=== PATIENT | female | born 1965 | race Caucasian/White ===

== ENCOUNTER → 2017-02-19 | Outpatient (REF) | payer BC, OTHER ==
[~2017-02-19] MED LIST: /ESCI10TA PO; /FENO14TA OR; ALBU0.5N NEB; ASPI325T PO; CEFT500T PO; COMBIN INH; ESTR2TAB PO; NICO21DI26 TD; PRED20TA PO; VITA500046 PO; ZANTTAB9 PO; ambien; colace; fish oil; metoprolol; proventil; vicodin
[2017-02-19 19:23] LABS: COMPLEMENT C4 22.3 MG/DL (10-40)
== END ==
LOC: M LAB REF 17:08
PROVIDERS: ATTEND Internal Medicine Nephrology
DX: M32.10 Systemic lupus erythematosus, organ or system involvement unspecified (principal)

== ENCOUNTER → 2017-03-16 | Outpatient (CLI) | payer BC, OTHER ==
--- NOTE | 2017-03-16 14:59 | REP ---
MR LUMBAR SPINE WITHOUT CONTRAST: HISTORY: Back pain. COMPARISON: 01/08/2016 Decreased signal intensity on T2-weighted images is present in the L4-5 intervertebral disc. The disc is decreased in height. These findings are consistent with disc degeneration. There is no disc bulge or herniation at the L1-2 and L5-S1 levels. The nerves exit the neural foramina without compression. A diffuse disc bulge is present at the L2-3 level. There is minimal compression of the thecal sac. The L2 nerves exit the neural foramina without compression. A diffuse disc bulge is present at the L3-4 level. There is hypertrophy of the ligamenta flava and posterior articulating facets. These findings produce minimal central canal stenosis. The L3 nerves exit the neural foramina without compression. A diffuse disc bulge is present at the L4-5 level. There is hypertrophy of the ligamenta flava and posterior articulating facets. These findings produce mild central canal stenosis. The L4 nerves exit the neural foramina without compression. The conus medullaris is normal in appearance terminating at the level of the L1-2 intervertebral disc. Normal signal intensity is present in the lumbar vertebral bodies. IMPRESSION: 1. Diffuse disc bulge at the L2-3 level with minimal thecal sac compression. 2. Minimal central canal stenosis at the L3-4 level secondary to disc bulge, ligamentous and facet hypertrophy. 3. Mild central canal stenosis at the L4-5 level secondary to disc bulge, ligamentous and facet hypertrophy. There is no change compared to the previous study. Signed by Albert White MD 03/16/2017 03:20 P
== END ==
LOC: M PLARAD 12:50
PROVIDERS: ATTEND Anesthesiology Pain Medicine
DX: M51.26 Other intervertebral disc displacement, lumbar region (principal)

== ENCOUNTER → 2018-06-30 | Outpatient (REF) | payer BC, OTHER | LOC: M SFHCPLAZ 12:47 | DX: R30.0 Dysuria (principal) | CPT/HCPCS: 87086 ==

== ENCOUNTER → 2018-07-28 | Outpatient (CLI) | payer BC, OTHER | LOC: M SMT 14:24 | DX: R05 Cough (principal) | CPT/HCPCS: 71046 ==

== ENCOUNTER → 2018-08-03 | Outpatient (CLI) | payer BC, OTHER | LOC: M WHC 09:07 | DX: Z12.31 Encounter for screening mammogram for malignant neoplasm of breast (principal); Z78.0 Asymptomatic menopausal state; Z92.23 Personal history of estrogen therapy; Z80.3 Family history of malignant neoplasm of breast; E89.0 Postprocedural hypothyroidism; E04.2 Nontoxic multinodular goiter | CPT/HCPCS: 77067 ==

== ENCOUNTER → 2018-08-16 | Outpatient (REF) | payer BC, OTHER | LOC: M SFHCLERA 16:52 | DX: R70.0 Elevated erythrocyte sedimentation rate (principal) ==

== ENCOUNTER → 2018-08-17 | Outpatient (REF) | payer BC, OTHER | LOC: M SFHCLERA 16:32 | DX: R70.0 Elevated erythrocyte sedimentation rate (principal) ==

== ENCOUNTER → 2018-08-18 | Outpatient (REF) | payer BC, OTHER ==
[2018-08-18 20:05] LABS: TOTAL PROTEIN 6.8 GM/DL (6.4-8.2)
[2018-08-19 11:33] LABS: ALBUMIN 4.05 GM/DL (3.29-5.55); ALBUMIN % 59.6 % (55.8-66.1); ALPHA-1-GLOBULIN % 4.9 % (2.9-4.9); ALPHA-1-GLOBULINS 0.33 GM/DL (0.17-0.41); ALPHA-2-GLOBULINS 0.78 GM/DL (0.42-0.99); ALPHA-2-GLOBULINS % 11.4 % (7.1-11.8); BETA-1-GLOBULINS 0.46 GM/DL (0.28-0.60); BETA-1-GLOBULINS % 6.7 % (4.7-7.2); BETA-2-GLOBULINS 0.33 GM/DL (0.19-0.55); BETA-2-GLOBULINS % 4.9 % (3.2-6.5); GAMMA GLOBULIN % 12.5 % (11.1-18.8); GAMMA GLOBULINS 0.85 GM/DL (0.65-1.58)
== END ==
LOC: M SFHCLERA 15:18
DX: R70.0 Elevated erythrocyte sedimentation rate (principal)
CPT/HCPCS: 84165

== ENCOUNTER → 2018-08-24 | Outpatient (REF) | payer BC, OTHER ==
[2018-08-24 21:01] LABS: C REACTIVE PROTEIN QUANTITATIV 1.87 MG/DL (0.00-0.30)
[2018-08-24 21:03] LABS: CPK CREATINE PHOSPHOKINASE 120 U/L (26-192)
[2018-08-24 22:07] LABS: ERYTHROCYTE SEDIMENTATION RATE 7 mm/hr (0-30)
[2018-08-25 14:55] LABS: PROCALCITONIN <0.05 NG/ML (<0.10)
== END ==
LOC: M SFHCLERA 14:49
DX: R70.0 Elevated erythrocyte sedimentation rate (principal)
CPT/HCPCS: 82550

== ENCOUNTER → 2018-09-30 | Outpatient (REF) | payer BC, OTHER | LOC: M LAB REF 17:27 | DX: N39.0 Urinary tract infection, site not specified (principal) | CPT/HCPCS: 87186 ==

== ENCOUNTER → 2018-10-05 | Outpatient (CLI) | payer BC, OTHER | LOC: M RAD 07:49 | DX: R91.1 Solitary pulmonary nodule (principal); K76.9 Liver disease, unspecified; J43.9 Emphysema, unspecified | CPT/HCPCS: 76705 ==

== ENCOUNTER → 2019-03-07 | Outpatient (REF) | payer BC, OTHER ==
[~2019-03-07] MED LIST changes: -/ESCI10TA PO; -/FENO14TA OR; +LEXA1TAB PO; +TRIC145T19 OR
[2019-03-07 16:49] LABS: BLOOD UREA NITROGEN 7 MG/DL (7-18); CALCIUM LEVEL 8.6 MG/DL (8.5-10.1); CARBON DIOXIDE LEVEL 29 MEQ/L (21-32); CHLORIDE LEVEL 105 MEQ/L (98-107); CREATININE FOR GFR 0.73 MG/DL (0.55-1.30); GLOMERULAR FILTRATION RATE > 60.0 (>51); GLUCOSE, FASTING 79 MG/DL (70-100); POTASSIUM SERUM 3.9 MEQ/L (3.5-5.1); SODIUM LEVEL 138 MEQ/L (136-145)
== END ==
LOC: M SFHCPLAZ 14:18
PROVIDERS: ATTEND Family Medicine
DX: I10 Essential (primary) hypertension (principal)

== ENCOUNTER → 2019-08-25 | Outpatient (CLI) | payer BC ==
--- NOTE | 2019-08-25 15:19 | REP ---
PA and lateral chest: Comparison is 02/10/2019. The lung ramirez are clear. The cardiac size is normal. The sudheer, mediastinum, and skeletal structures are unremarkable. There are surgical clips in the soft tissues of the neck on the right, unchanged. There are surgical clips in the abdominal right upper quadrant, unchanged. Impression: Negative PA and lateral chest. There is no interval change. Electronically Signed by Pratik Grace MD 08/25/2019 03:11 P
== END ==
LOC: M LRY 14:47
PROVIDERS: ATTEND Nurse Practitioner Family
DX: R06.2 Wheezing (principal)

== ENCOUNTER → 2019-09-08 | Outpatient (CLI) | payer BC, OTHER ==
--- NOTE | 2019-09-14 09:51 | SLEEPHOME ---
DATE OF STUDY: 09/08/2019 ORDERED BY: Mio Lora Diagnostic home sleep testing was performed due to concern for the obstructive sleep apnea syndrome. For testing, a nocturnal T3 respiratory monitoring device was used. Continuous record was made of pulse, oxygen saturation, airflow, chest and abdominal strain and body position. 10 hours and 59 minutes of data were reviewed. There were 2 hours and 24 minutes marked as time in bed. During the interval marked time in bed, there were 20 respiratory events identified of 10 seconds in duration or greater for a respiratory event index of 8.3. The events were primarily obstructive. Baseline pulse rate 67 beats per minute, pulse rate ranged 57-75. Baseline saturation 91.3%. The lowest saturation was 87%. Testing was performed in both the supine and nonsupine positions. IMPRESSION: Abnormal home sleep testing with repetitive respiratory events and oxygen desaturations to 87% with a respiratory event index of 8.3 is consistent with the obstructive sleep apnea syndrome. RECOMMENDATION: The patient should be encouraged to undergo formal sleep evaluation.
== END ==
LOC: M SLEEP HO 09-07 10:02
PROVIDERS: ATTEND Physician Assistant
DX: R06.83 Snoring (principal)

== ENCOUNTER → 2019-10-13 | Outpatient (CLI) | payer BC, OTHER ==
--- NOTE | 2019-10-14 08:58 | REP ---
CT neck soft tissues: 10/13/2019. Indication: Neck swelling. Comparison: None. Technique: Unenhanced axial images of the neck soft tissues were obtained with coronal and sagittal reconstructions provided. Findings: Evaluation of the neck soft tissues without IV iodinated contrast is suboptimal. No abnormal solid soft tissue masses, abnormal fluid collections or cervical lymphadenopathy are detected. The airway is patent. Partial thyroidectomy is noted. Multilevel degenerative sequelae of the cervical spine are present with the greatest spinal canal narrowing at C4/C5 and C5/C6. No significant submandibular or parotid lesions are detected. The visualized ocular, intraorbital and intracranial anatomy is unremarkable. Impression: No abnormal solid soft tissue mass, abnormal fluid collection or cervical lymphadenopathy detected. Electronically Signed by Joe Diaz DO 10/14/2019 08:49 A
== END ==
LOC: M RAD 17:07
PROVIDERS: ATTEND Otolaryngology
DX: R22.1 Localized swelling, mass and lump, neck (principal)

== ENCOUNTER → 2019-10-17 | Outpatient (REF) | payer BC | LOC: M SFHCLERA 18:26 | PROVIDERS: ATTEND Nurse Practitioner Family | DX: J02.9 Acute pharyngitis, unspecified (principal) ==

== ENCOUNTER → 2019-10-17 | Outpatient (CLI) | payer BC, OTHER ==
--- NOTE | 2019-10-17 18:30 | REP ---
Clinical: Congestion . Comparison: 08/25/2019 . Technique: PA and lateral. Findings: The mediastinum and cardiac silhouette are normal. The lung ramirez are clear and without acute consolidation, effusion, or pneumothorax. The skeletal structures are intact and normal. Impression: 1. No focal consolidation or effusion. Electronically Signed by Mio George MD 10/17/2019 06:22 P
== END ==
LOC: M LRY 18:02
PROVIDERS: ATTEND Nurse Practitioner Family
DX: R09.89 Other specified symptoms and signs involving the circulatory and respiratory systems (principal)

== ENCOUNTER → 2019-10-18 | Outpatient (REF) | payer BC | LOC: M LAB REF 16:40 | PROVIDERS: ATTEND Nurse Practitioner Family | DX: N39.0 Urinary tract infection, site not specified (principal) ==

== ENCOUNTER → 2019-11-01 | Outpatient (CLI) | payer BC, OTHER ==
[2019-11-01 15:58] LABS: FREE T4 0.79 NG/DL (0.76-1.46); THYROID STIMULATING HORMONE 1.37 uIU/ML (0.358-3.740)
== END ==
LOC: M LAB 14:42
PROVIDERS: ATTEND Family Medicine
DX: K58.0 Irritable bowel syndrome with diarrhea (principal)

== ENCOUNTER → 2019-11-02 | Outpatient (CLI) | payer BC ==
[~2019-11-02] MED LIST changes: +READI-CAT 2 As Ordered ONE
--- NOTE | 2019-11-02 19:29 | REP ---
CT ABDOMEN AND PELVIS WITH ORAL CONTRAST ONLY: CT abdomen and pelvis performed with oral contrast. No IV contrast was administered. Sagittal and coronal reconstructions images are performed. No infiltrate is seen in either lung base. Evaluation of the abdominal organs is limited without the use of intravenous contrast. However, no gross abnormality is seen of the liver, spleen, adrenals, pancreas or kidneys. There is no hydroureteronephrosis bilaterally. The patient has had a prior cholecystectomy. There is no gross biliary dilatation. Abdominal aorta demonstrates mild atherosclerotic calcification with no aneurysm. There is no gross adenopathy. There is no free air or free fluid. No definite bowel wall thickening is seen. Patient has had a hysterectomy. No pelvic mass is seen. Urinary bladder is mildly distended and grossly unremarkable. IMPRESSION: Grossly unremarkable CT abdomen and pelvis as discussed above. Unreviewed
== END ==
LOC: M RAD 15:22
PROVIDERS: ATTEND Internal Medicine Gastroenterology
DX: R63.4 Abnormal weight loss (principal); K58.0 Irritable bowel syndrome with diarrhea

== ENCOUNTER → 2019-12-22 | Outpatient (REF) | payer BC, OTHER ==
[~2019-12-22] MED LIST changes: +ATAC4TAB2 PO; +COMBAER6 INH; +DULO1CAP4 PO; +ESTR1TAB PO; +GABA-845 PO; +HYDR-4517 PO; +METH2.5T48 PO; +PEPC40TA12 PO; +PRIL20TA2 PO; +PROAAER10 INH; -READI-CAT 2 As Ordered ONE; +SYMB16INH INH
[2019-12-22 11:26] LABS: BLOOD UREA NITROGEN 8 MG/DL (7-18); CALCIUM LEVEL 8.7 MG/DL (8.5-10.1); CARBON DIOXIDE LEVEL 31 MEQ/L (21-32); CHLORIDE LEVEL 105 MEQ/L (98-107); CREATININE FOR GFR 0.79 MG/DL (0.55-1.30); GLOMERULAR FILTRATION RATE > 60.0 (>51); GLUCOSE, FASTING 94 MG/DL (70-100); MAGNESIUM LEVEL 2.4 MG/DL (1.8-2.4); POTASSIUM SERUM 4.2 MEQ/L (3.5-5.1); SODIUM LEVEL 140 MEQ/L (136-145)
== END ==
LOC: M SFHCPLAZ 09:15
PROVIDERS: ATTEND Family Medicine
DX: N18.3 Chronic kidney disease, stage 3 (moderate) (principal)

== ENCOUNTER 2019-12-27 09:49 | Day surgery (SDC) | payer BC, OTHER ==
[~2019-12-27] VITALS: Ht 162.6 cm; Wt 68.9 kg
[~2019-12-27 09:49] MED LIST changes: +NS 1,000 ML IV ONE
[2019-12-27] MEDS ORDERED: fentaNYL 100 MCG/2 ML INJECTION (J3010) As Ordered ONE (12:46)
[2019-12-27] MEDS ORDERED: propofoL 200 MG/20 ML VIAL As Ordered ONE (12:46)
[2019-12-27] MEDS ORDERED: LIDOCAINE 2% INJ 100 MG/5 ML SDV (FOR ANES.) As Ordered ONE (12:46)
--- NOTE | 2019-12-27 12:57 | ROOR ---
Patient Name: Sabrina Pal Procedure Date: 12/27/2019 12:42 PM Date of : 1965 Age: 54 Room: [facility] Gender: Female Note Status: Finalized Procedure: Upper GI endoscopy Indications: Abdominal pain, Heartburn, Weight loss Providers: Celestino MILLER MD Referring MD: Karyn Euceda MD Requesting Provider: Medicines: Monitored Anesthesia Care Complications: No immediate complications. Procedure: Pre-Anesthesia Assessment: - The heart rate, respiratory rate, oxygen saturations, blood pressure, adequacy of pulmonary ventilation, and response to care were monitored throughout the procedure. The Endoscope was introduced through the mouth, and advanced to the third part of duodenum. The upper GI endoscopy was accomplished without difficulty. The patient tolerated the procedure well. Findings: The esophagus was normal. The stomach was normal. The examined duodenum was normal. Impression: - Normal esophagus. - Normal stomach. - Normal examined duodenum. - No specimens collected. Recommendation: - Observe patient's clinical course. - Continue present medications. - Use Pepcid (famotidine) 20 mg PO BID. - Follow an antireflux regimen. Celestino Miller MD Celestino MILLER MD 12/27/2019 12:56:52 PM Electronically signed by Celestino MILLER MD Number of Addenda: 0 Note Initiated On: 12/27/2019 12:42 PM Estimated Blood Loss: Estimated blood loss: none.
--- NOTE | 2019-12-27 13:20 | ROOR ---
Patient Name: Sabrina Pal Procedure Date: 12/27/2019 12:42 PM Date of : 1965 Age: 54 Room: [facility] Gender: Female Note Status: Finalized Procedure: Colonoscopy Indications: Generalized abdominal pain, Change in bowel habits, Weight loss --(symptoms reduced/resolved after stopping PPI meds) Providers: Celestino MILLER MD Referring MD: Karyn Euceda MD Requesting Provider: Medicines: Monitored Anesthesia Care Complications: No immediate complications. Procedure: Pre-Anesthesia Assessment: - The heart rate, respiratory rate, oxygen saturations, blood pressure, adequacy of pulmonary ventilation, and response to care were monitored throughout the procedure. The Colonoscope was introduced through the anus and advanced to 9 cm into the ileum. The colonoscopy was performed without difficulty. The patient tolerated the procedure well. The quality of the bowel preparation was good. Findings: The perianal and digital rectal examinations were normal. (Sphincter tone may be decreased) Two sessile polyps were found in the splenic flexure. The polyps were 3 to 5 mm in size. These polyps were removed with a cold snare. Resection and retrieval were complete. Internal hemorrhoids were found during retroflexion. The hemorrhoids were small. The exam was otherwise normal throughout the examined colon. The terminal ileum appeared normal. Biopsies for histology were taken with a cold forceps for evaluation of microscopic colitis. Impression: - Diminished anal sphincter tone on digital rectal exam. - Two 3 to 5 mm polyps at the splenic flexure, removed with a cold snare. Resected and retrieved. - Internal hemorrhoids. - The colon is otherwise normal. - The examined portion of the ileum was normal. - Biopsies were taken with a cold forceps for evaluation of microscopic colitis. Recommendation: - Repeat colonoscopy in 5 years for surveillance. - Use fiber, for example Citrucel, Fibercon, Konsyl or Metamucil. - Telephone endoscopist for pathology results in 2 weeks. Celestino Miller MD Celestino MILLER MD 12/27/2019 1:20:30 PM Electronically signed by Celestino MILLER MD Number of Addenda: 0 Note Initiated On: 12/27/2019 12:42 PM Estimated Blood Loss: Estimated blood loss: none.
[2019-12-27 13:40] VITALS: BP 136/70
== END 2019-12-27 13:56 | disposition home or self-care (01) ==
LOC: M OPP 09:49
PROVIDERS: ATTEND Internal Medicine Gastroenterology
DX: D12.3 Benign neoplasm of transverse colon (principal); K64.8 Other hemorrhoids; R10.84 Generalized abdominal pain; R19.4 Change in bowel habit; R63.4 Abnormal weight loss; R12 Heartburn; Z79.891 Long term (current) use of opiate analgesic; Z79.899 Other long term (current) drug therapy; Z88.2 Allergy status to sulfonamides; Z88.5 Allergy status to narcotic agent; Z88.8 Allergy status to other drugs, medicaments and biological substances; Z91.040 Latex allergy status; Z91.041 Radiographic dye allergy status
CPT/HCPCS: 43235; 45380; 45385; 88305; J3010

== ENCOUNTER → 2020-01-27 | Outpatient (REF) | payer BC, OTHER ==
[~2020-01-27] MED LIST changes: -NS 1,000 ML IV ONE
== END ==
LOC: M SFHCWAGY 11:47
PROVIDERS: ATTEND Family Medicine
DX: D23.72 Other benign neoplasm of skin of left lower limb, including hip (principal); D23.71 Other benign neoplasm of skin of right lower limb, including hip; D23.5 Other benign neoplasm of skin of trunk

== ENCOUNTER 2020-07-17 14:57 | Emergency (ER) | payer BC, OTHER ==
[~2020-07-17] VITALS: Ht 165.1 cm; Wt 74.1 kg
[2020-07-17] MEDS ORDERED: OMEP-221 PO (15:33)
[2020-07-17] MEDS ORDERED: CLON0.5T2 PO (15:33)
[2020-07-17 16:12] LABS: BASO % 0.3 % (0.0-1.0); EOS # 0.1 10^3/uL (0.0-0.5); EOS % 1.2 % (0.0-3.0); HEMATOCRIT 40.1 % (36.0-47.0); HEMOGLOBIN 13.8 g/dl (12.0-15.5); LYMPH # 2.4 10^3/uL (1.5-5.0); LYMPH % 35.5 % (24.0-44.0); MEAN CORPUSCULAR HEMOGLOBIN 31.9 pg (27.0-33.0); MEAN CORPUSCULAR HGB CONC 34.4 g/dl (32.0-36.5); MEAN CORPUSCULAR VOLUME 92.6 fl (80.0-96.0); MONO # 0.5 10^3/uL (0.0-0.8); MONO % 7.9 % (0.0-5.0); NEUTROPHILS # 3.7 10^3/uL (1.5-8.5); NEUTROPHILS % 54.8 % (36.0-66.0); PLATELET COUNT, AUTOMATED 196 10^3/uL (150-450); RED BLOOD COUNT 4.33 10^6/uL (4.00-5.40); WHITE BLOOD COUNT 6.7 10^3/uL (4.0-10.0)
[2020-07-17 16:32] LABS: ERYTHROCYTE SEDIMENTATION RATE 16 mm/hr (0-30)
[2020-07-17 16:51] LABS: BLOOD UREA NITROGEN 7 MG/DL (7-18); C REACTIVE PROTEIN QUANTITATIV 1.99 MG/DL (0.00-0.30); CALCIUM LEVEL 8.9 MG/DL (8.5-10.1); CARBON DIOXIDE LEVEL 30 MEQ/L (21-32); CHLORIDE LEVEL 105 MEQ/L (98-107); GLOMERULAR FILTRATION RATE > 60.0 (>51); GLUCOSE, FASTING 96 MG/DL (70-100); NT-PRO BNP 198 PG/ML (<125); POTASSIUM SERUM 3.5 MEQ/L (3.5-5.1); SODIUM LEVEL 139 MEQ/L (136-145)
[2020-07-17] MEDS ORDERED: FUROSEMIDE 20 MG TAB PO ONE (17:30)
[2020-07-17] MEDS ORDERED: POTASSIUM CHLORIDE 10% LIQ 20 MEQ/15 ML UDC PO ONE (17:30)
[2020-07-17 17:53] LABS: CK-MB VALUE MASS < 1.0 NG/ML (<3.6); CPK CREATINE PHOSPHOKINASE 92 U/L (26-192); MB/CK RELATIVE INDEX 1.09 (< OR =4); TROPONIN I < 0.02 NG/ML (< 0.10)
[2020-07-17] MEDS ORDERED: ACETAMINOPHEN 500 MG TAB PO ONE (18:00)
[2020-07-17] MEDS ORDERED: POTA20EL PO (18:45)
[2020-07-17 18:53] VITALS: BP 190/100
--- NOTE | 2020-08-05 17:29 | ECGEPIP ---
[facility] - ED Test Date: 2020-07-17 Pat Name: VERONIKA CROWLEY Department: Room: - Gender: Female Teen Counselor: : 1965 Requested By: NUNU Maki PA-C Order Number: [id number] Reading MD: Diamond Chow-Zachariah Measurements Intervals [place] Rate: 60 P: 60 CO: 131 QRS: -14 QRSD: 85 T: 28 QT: 417 QTc: 419 Interpretive Statements SINUS RHYTHM NONSPECIFIC ST T CHANGE NO PRIOR-DOWNTIME SEE SCANNED DOWNTIME REPORT
--- NOTE | 2020-08-21 09:54 | REP ---
TWO-VIEW CHEST COMPARISON: Multiple, the latest 10/17/2019. FINDINGS: The cardiomediastinal silhouette is within normal limits. The superior mediastinal structures are midline. The lung ramirez are clear. The diaphragmatic surfaces of the lungs are regular and the costophrenic angles are clear. The osseous structures are stable and intact. IMPRESSION: No acute cardiopulmonary disease or significant change from the prior exam. MTDD
== END 2020-07-17 18:55 | disposition home or self-care (01) ==
LOC: M ED 14:57
DX: R22.43 Localized swelling, mass and lump, lower limb, bilateral (principal); R06.02 Shortness of breath; R05 Cough; I12.9 Hypertensive chronic kidney disease with stage 1 through stage 4 chronic kidney disease, or unspecified chronic kidney disease; J44.9 Chronic obstructive pulmonary disease, unspecified; M32.9 Systemic lupus erythematosus, unspecified; F17.210 Nicotine dependence, cigarettes, uncomplicated; Z88.2 Allergy status to sulfonamides; Z88.6 Allergy status to analgesic agent; Z91.040 Latex allergy status; Z79.899 Other long term (current) drug therapy; Z79.51 Long term (current) use of inhaled steroids

== ENCOUNTER → 2020-07-19 | Outpatient (CLI) | payer BC, OTHER ==
[~2020-07-19] MED LIST changes: +CLON0.5T2 PO; +OMEP-221 PO; +POTA20EL PO
[2020-07-19 13:50] LABS: BLOOD UREA NITROGEN 7 MG/DL (7-18); CALCIUM LEVEL 8.8 MG/DL (8.5-10.1); CARBON DIOXIDE LEVEL 28 MEQ/L (21-32); CHLORIDE LEVEL 106 MEQ/L (98-107); CREATININE FOR GFR 0.74 MG/DL (0.55-1.30); GLOMERULAR FILTRATION RATE > 60.0 (>51); GLUCOSE, FASTING 80 MG/DL (70-100); POTASSIUM SERUM 3.8 MEQ/L (3.5-5.1); SODIUM LEVEL 138 MEQ/L (136-145)
== END ==
LOC: M PLALAB 09:09
PROVIDERS: ATTEND Physician Assistant
DX: E87.6 Hypokalemia (principal)

== ENCOUNTER → 2020-10-09 | Outpatient (CLI) | payer BC, OTHER ==
--- NOTE | 2020-10-10 03:47 | REP ---
INDICATION: R10.2 PELVIC AND PERINEAL PAIN COMPARISON: None. TECHNIQUE: Transabdominal pelvic ultrasound followed by transvaginal examination for better evaluation of the endometrium and adnexa with color Doppler evaluation of the ovaries. FINDINGS: Bladder is unremarkable and measures approximately 6.9 x 5.8 x 6.8 cm. Patient is noted to be status post total hysterectomy and oophorectomy. No pelvic fluid or adnexal mass lesion. IMPRESSION: Status post total hysterectomy. No pelvic fluid or mass lesion. <Electronically signed by Mio George > 10/10/20 [id number]
== END ==
LOC: M WHC 15:06
PROVIDERS: ATTEND Obstetrics & Gynecology
DX: R10.2 Pelvic and perineal pain (principal)

== ENCOUNTER → 2020-11-01 | Outpatient (CLI) | payer BC, OTHER ==
--- NOTE | 2020-11-01 14:36 | REPPI ---
INDICATION: M54.5 LOW BACK PAIN. COMPARISON: 07/31/2014. TECHNIQUE: Seven views including flexion and extension. FINDINGS: Vertebral body heights, interspacing and alignment are normal except for mild disc space narrowing at L5-S1. This is unchanged. There is no spondylolysis or spondylolisthesis. There is no listhesis on the flexion or extension views. The pedicles and facets are unremarkable The 12th ribs are hypoplastic as previously. There are surgical clips in the abdominal right upper quadrant. Except for mild facet osteoarthritis at the lower lumbar levels. IMPRESSION: Mild degenerative disc disease at L5-S1, unchanged. There is no spondylolisthesis including flexion and extension views. There is no spondylolysis. Hypoplastic 12th ribs. <Electronically signed by Pratik Grace > 11/01/20 [id number]
== END ==
LOC: M PLAIMG 10:58
PROVIDERS: ATTEND Family Medicine
DX: M54.5 Low back pain (principal)

== ENCOUNTER → 2020-11-01 | Outpatient (REF) | payer BC, OTHER ==
[2020-11-01 13:43] LABS: HEMATOCRIT 41.9 % (36.0-47.0); HEMOGLOBIN 13.5 g/dl (12.0-15.5); MEAN CORPUSCULAR HEMOGLOBIN 29.4 pg (27.0-33.0); MEAN CORPUSCULAR HGB CONC 32.2 g/dl (32.0-36.5); MEAN CORPUSCULAR VOLUME 91.3 fl (80.0-96.0); PLATELET COUNT, AUTOMATED 241 10^3/uL (150-450); RED BLOOD COUNT 4.59 10^6/uL (4.00-5.40); WHITE BLOOD COUNT 6.9 10^3/uL (4.0-10.0)
[2020-11-01 14:08] LABS: BLOOD UREA NITROGEN 8 MG/DL (7-18); CALCIUM LEVEL 8.5 MG/DL (8.5-10.1); CARBON DIOXIDE LEVEL 30 MEQ/L (21-32); CHLORIDE LEVEL 107 MEQ/L (98-107); CREATININE FOR GFR 0.74 MG/DL (0.55-1.30); GLOMERULAR FILTRATION RATE > 60.0 (>51); GLUCOSE, FASTING 86 MG/DL (70-100); POTASSIUM SERUM 3.7 MEQ/L (3.5-5.1); SODIUM LEVEL 140 MEQ/L (136-145)
== END ==
LOC: M SFHCPLAZ 10:58
PROVIDERS: ATTEND Family Medicine
DX: Z01.818 Encounter for other preprocedural examination (principal)

== ENCOUNTER → 2020-12-26 | Outpatient (CLI) | payer BC, OTHER ==
--- NOTE | 2020-12-26 15:23 | REP ---
INDICATION: LUNG SCREENING. COMPARISON: None. TECHNIQUE: Low-dose screening technique. 3 mm axial slices are provided at lung only windows. FINDINGS: Digital preliminary hardness tester radiograph is unremarkable. There is a 3 mm noncalcified pulmonary nodule in the left lung apex on page 14 of 108 in series 301 of today's study. There is a tiny area of subpleural fibrosis in the right upper lobe posteriorly. There is a benign Diane fissural 3 mm nodular density in the right middle lobe on page 54. No other pulmonary nodule is seen. No evidence of mass or infiltrate. No pleural effusion is seen. There are clips in the gallbladder fossa. There is mild vascular calcification. IMPRESSION: Lung RADS category 1 findings. Repeat screening study suggested in 1 year. <Electronically signed by Isael Staton > 12/26/20 [id number]
== END ==
LOC: M RAD 13:51
PROVIDERS: ATTEND Physician Assistant
DX: Z12.2 Encounter for screening for malignant neoplasm of respiratory organs (principal); F17.218 Nicotine dependence, cigarettes, with other nicotine-induced disorders

== ENCOUNTER → 2021-06-08 | Outpatient (CLI) | payer OTHER, MEDICARE, BC ==
[~2021-06-08] MED LIST changes: +GABA-283 PO; -GABA-845 PO
--- NOTE | 2021-06-08 13:10 | REPVR ---
PROCEDURE INFORMATION: Exam: MR Lumbar Spine Without Contrast. Exam date and time: 06/08/2021 10:53 AM Age: 55 years old Clinical indication: Other: Numbness on the bottom of left foot and toes; Additional info: Paresthesia of left foot TECHNIQUE: Imaging protocol: Multiplanar magnetic resonance images of the lumbar spine without contrast. COMPARISON: MRI-Spine, L.S. without con 03/16/2017 1:07 PM FINDINGS: Normal lumbar lordosis. Minimal anterolisthesis at L3-L4. No compression fractures. Normal marrow signal. Disc heights are maintained with mild degenerative disc signal throughout the lumbar spine. The distal spinal cord appears normal. Spinal canal narrowing is accentuated by dorsal epidural lipomatosis, most pronounced at the L3-L4 level. At L1-L2, there is no significant spinal canal or neural foraminal narrowing. At L2-L3, there is no significant spinal canal or neural foraminal narrowing. Mild bilateral facet arthrosis. At L3-L4, there is mild circumferential disc bulge and ligamentum flavum hypertrophy which in conjunction with epidural lipomatosis results in moderate spinal canal narrowing. Mild right neural foraminal narrowing. Moderate right and mild left facet arthrosis. At L4-L5, a mild circumferential disc bulge is present and there is ligamentum flavum hypertrophy. There is mild spinal canal narrowing. Minimal inferior neural foraminal narrowing. Moderate left and mild right facet arthrosis. At L5-S1, there is no significant spinal canal or neural foraminal narrowing. IMPRESSION: Multilevel lumbar spine degenerative change accentuated by epidural lipomatosis, with up to moderate spinal canal narrowing at L3-L4 which appears progressive from the comparison MRI from 2016. Electronically signed by: Nuno Marie On 06/08/2021 13:09:47 PM
== END ==
LOC: M RAD 10:19
PROVIDERS: ATTEND Family Medicine
DX: R20.2 Paresthesia of skin (principal)

== ENCOUNTER → 2021-07-02 | Outpatient (CLI) | payer OTHER, MEDICARE, BC ==
--- NOTE | 2021-07-02 14:07 | REP ---
INDICATION: CALCULUS OF KIDNEY. COMPARISON: Multiple the latest 11/02/2019 TECHNIQUE: Standard helical technique without intravenous contrast stone protocol utilized secondary to renal calculi. FINDINGS: Minimal bibasilar subsegmental atelectatic changes are present. Lung bases are otherwise clear and unchanged. Limited evaluation of the solid intra-abdominal organs show no gross abnormalities or significant changes from the prior exam. Limited evaluation of the pancreas and adrenal glands show no gross abnormalities or significant changes from the prior exam. Limited evaluation of the kidneys and renal collecting system show no gross abnormalities bilaterally. There is no nephroureterolithiasis, hydronephrosis, or hydroureter. There are no urinary bladder calcifications. Limited evaluation of the bowel loops and the mesenteries show no gross abnormalities or significant changes from the prior exam. Limited evaluation of the abdominal aorta and para-aortic regions show no gross abnormalities or significant changes from the prior exam. There is no free fluid or free air. There is no change in the osseous structures. IMPRESSION: There has been no significant change compared to the prior exam. There is no evidence of acute disease. Consider contrast enhanced examination if clinically relevant. <Electronically signed by Conrad Mchugh > 07/02/21 [id number]
== END ==
LOC: M RAD 12:30
PROVIDERS: ATTEND Nurse Practitioner Family
DX: N39.0 Urinary tract infection, site not specified (principal); N20.0 Calculus of kidney

== ENCOUNTER → 2021-10-28 | Outpatient (CLI) | payer OTHER, MEDICARE, BC ==
--- NOTE | 2021-10-28 11:06 | REPMRS ---
Patient History The patient states she had a clinical breast exam in 04/2021. Patient is postmenopausal. Family history of breast cancer at age 61 in maternal grandmother, breast cancer at age 50 or over in paternal aunt, pancreatic cancer at age 50 or over in paternal grandfather. Taking estrogen for 13 years beginning at age 42. Patient states no breast complaints today. Patient has signed MRS History Sheet. Digital Woman Screen Mammo: October 28, 2021 - Exam #: [id number] Bilateral CC and MLO view(s) were taken. Technologist: Mara Guillen, Hard Tile Setter Prior study comparison: August 03, 2018, bilateral digital woman screen mammo performed at [facility] and [facility]. April 03, 2016, digital bilateral screening mammo, performed at [facility]. FINDINGS: There are scattered fibroglandular densities. Screening. Digital screening (2D) mammography was performed bilaterally in the CC and MLO projections. Additionally, breast tomosynthesis (3D mammography) was performed bilaterally in the CC and MLO projections. Todays exam was compared to the prior exam/exams. By history, the patient has no complaints of a palpable breast abnormality or other significant breast complaints. The Volpara volumetric breast density category is B, there are scattered areas of fibroglandular densities. The breasts are unchanged in size and shape. There are no stefania-soft tissue densities or spiculated masses. There is no internal architectural distortion. Once again, stable benign appearing calcifications are seen. There are no suspicious stefania-calcific clusters. Skin thickening or nipple retraction is not present. IMPRESSION: BI-RADS Category 2- Benign Findings. There is no evidence of malignant alteration of the breasts. Followup examination recommended in one year. This mammogram was read with the assistance of [facility],an FDA approved computer aided detection system for mammography. The lifetime Tyrer-Cuzick score is 11.1% Negative x-ray reports should not delay surgical consultation if a dominant or clinically suspicious mass is present. Not all breast cancers can be identified by mammography. Therefore, we recommend that you continue to perform regular breast self-examination and physical examination and then promptly contact your physician of any concerns or changes. Adenosis and dense breasts may obscure an underlying neoplasm. No significant changes when compared with prior studies. Assessment: BI-RADS/ACR category 2 mammogram. Benign Findings. Recommendation Routine screening mammogram of both breasts in 1 year. Electronically Signed By: Preston Granados MD 10/28/21 [id number]
== END ==
LOC: M WHC 08:43
PROVIDERS: ATTEND Family Medicine
DX: Z12.31 Encounter for screening mammogram for malignant neoplasm of breast (principal)

== ENCOUNTER → 2022-02-10 | Outpatient (CLI) | payer MEDICARE, BC ==
[~2022-02-10] MED LIST changes: -OMEP-221 PO; +OMEP40CA5 PO
== END ==
LOC: M RAD 13:28
PROVIDERS: ATTEND Physician Assistant
DX: Z12.2 Encounter for screening for malignant neoplasm of respiratory organs (principal); F17.210 Nicotine dependence, cigarettes, uncomplicated

== ENCOUNTER → 2022-02-26 | Outpatient (REF) | payer MEDICARE, BC, OTHER | LOC: M SFHCPLAZ 18:49 | PROVIDERS: ATTEND Family Medicine | DX: L57.0 Actinic keratosis (principal); L57.8 Other skin changes due to chronic exposure to nonionizing radiation; B07.9 Viral wart, unspecified ==

== ENCOUNTER → 2022-04-02 | Outpatient (CLI) | payer MEDICARE, BC, OTHER ==
[2022-04-02 17:27] LABS: BASO % 0.4 % (0.0-1.0); EOS # 0.1 10^3/uL (0.0-0.5); HEMATOCRIT 40.5 % (36.0-47.0); HEMOGLOBIN 13.6 g/dl (12.0-15.5); LYMPH # 2.6 10^3/uL (1.5-5.0); LYMPH % 36.5 % (24.0-44.0); MEAN CORPUSCULAR HEMOGLOBIN 30.2 pg (27.0-33.0); MEAN CORPUSCULAR HGB CONC 33.6 g/dl (32.0-36.5); MEAN CORPUSCULAR VOLUME 89.8 fl (80.0-96.0); MONO # 0.5 10^3/uL (0.0-0.8); MONO % 7.6 % (2.0-8.0); NEUTROPHILS # 3.9 10^3/uL (1.5-8.5); NEUTROPHILS % 54.1 % (36.0-66.0); PLATELET COUNT, AUTOMATED 381 10^3/uL (150-450); RED BLOOD COUNT 4.51 10^6/uL (4.00-5.40); WHITE BLOOD COUNT 7.1 10^3/uL (4.0-10.0)
[2022-04-02 17:36] LABS: CHOLESTEROL RISK RATIO 4.404 (<5); FREE T4 0.8 NG/DL (0.76-1.46); THYROID STIMULATING HORMONE 2.09 uIU/ML (0.358-3.740)
== END ==
LOC: M PLALAB 14:51
PROVIDERS: ATTEND Physician Assistant
DX: R53.83 Other fatigue (principal); Z79.899 Other long term (current) drug therapy

== ENCOUNTER → 2022-07-15 | Outpatient (CLI) | payer MEDICARE, BC | LOC: M RAD 09:12 | PROVIDERS: ATTEND Internal Medicine Rheumatology | DX: M51.26 Other intervertebral disc displacement, lumbar region (principal); M48.061 Spinal stenosis, lumbar region without neurogenic claudication; M51.27 Other intervertebral disc displacement, lumbosacral region ==

== ENCOUNTER → 2022-08-15 | Outpatient (CLI) | payer MEDICARE, BC | LOC: M PLAIMG 12:43 | PROVIDERS: ATTEND Physician Assistant | DX: R91.8 Other nonspecific abnormal finding of lung field (principal) ==

== ENCOUNTER → 2023-01-02 | Outpatient (CLI) | payer MEDICARE, BC ==
[2023-01-02 12:26] LABS: BASO # 0.1 10^3/uL (0.0-0.2); BASO % 0.8 % (0.0-1.0); EOS # 0.2 10^3/uL (0.0-0.5); EOS % 2.3 % (0.0-3.0); HEMATOCRIT 41.9 % (36.0-47.0); HEMOGLOBIN 13.8 g/dl (12.0-15.5); LYMPH # 2.3 10^3/uL (1.5-5.0); LYMPH % 36.3 % (24.0-44.0); MEAN CORPUSCULAR HEMOGLOBIN 29.7 pg (27.0-33.0); MEAN CORPUSCULAR HGB CONC 32.9 g/dl (32.0-36.5); MEAN CORPUSCULAR VOLUME 90.3 fl (80.0-96.0); MONO # 0.6 10^3/uL (0.0-0.8); MONO % 9.2 % (2.0-8.0); NEUTROPHILS # 3.3 10^3/uL (1.5-8.5); NEUTROPHILS % 50.9 % (36.0-66.0); PLATELET COUNT, AUTOMATED 232 10^3/uL (150-450); RED BLOOD COUNT 4.64 10^6/uL (4.00-5.40); WHITE BLOOD COUNT 6.4 10^3/uL (4.0-10.0)
[2023-01-02 12:48] LABS: COMPLEMENT C4 28.9 MG/DL (12-36)
[2023-01-02 12:52] LABS: BLOOD UREA NITROGEN 11 MG/DL (9-23); CREATININE FOR GFR 0.77 MG/DL (0.55-1.30); GLUCOSE, FASTING 101 MG/DL (60-100)
[2023-01-02 12:53] LABS: ALBUMIN 3.3 G/DL (3.2-5.2); ALKALINE PHOSPHATASE 80 U/L (46-116); ALT/SGPT 10 U/L (7.0-40); AST/SGOT 17 U/L (<34); BILIRUBIN,TOTAL 0.3 MG/DL (0.3-1.2); CALCIUM LEVEL 8.5 MG/DL (8.5-10.1); CARBON DIOXIDE LEVEL 30 MMOL/L (20-31); CHLORIDE LEVEL 100 MMOL/L (98-107); GLOMERULAR FILTRATION RATE > 60.0 (>51); POTASSIUM SERUM 3.7 MMOL/L (3.5-5.1); SODIUM LEVEL 135 MMOL/L (136-145); TOTAL PROTEIN 6.3 G/DL (5.7-8.2)
[2023-01-02 13:02] LABS: ERYTHROCYTE SEDIMENTATION RATE 21 mm/hr (0-30)
[2023-01-02 13:23] LABS: APPEARANCE, URINE MANUAL HAZY (CLEAR); COLOR, URINE MANUAL YELLOW (YELLOW)
[2023-01-02 13:24] LABS: SPECIFIC GRAVITY,URINE MANUAL 1.025 (1.002-1.035)
[2023-01-02 13:25] LABS: BLOOD URINE MANUAL TRACE (NEGATIVE); GLUCOSE, URINE (UA) MANUAL NEGATIVE (NEGATIVE); KETONE, URINE MANUAL 1+ mg/dL (NEGATIVE); PROTEIN, URINE MANUAL TRACE mg/dL (NEGATIVE); UROBILINOGEN, URINE MANUAL NORMAL (NORMAL)
[2023-01-02 13:26] LABS: BILIRUBIN, URINE MANUAL NEGATIVE (NEGATIVE); LEUKOCYTE ESTERASE, URINE MAN NEGATIVE (NEGATIVE); NITRITE, URINE MANUAL NEGATIVE (NEGATIVE)
[2023-01-02 13:48] LABS: BACTERIA, URINE LARGE AMOUNT; HYALINE CAST, URINE NONE SEEN /lpf (0-1); RBC, URINE 0-1 /hpf (0-3); SQUAMOUS EPITHELIAL CELL URINE SMALL AMOUNT /hpf (SMALL AMT); WBC, URINE 0-1 /hpf (0-3)
[2023-01-02 13:49] LABS: AMORPHOUS SEDIMENT, URINE SMALL AMOUNT (NEGATIVE)
[2023-01-08 12:08] LABS: ANTI DS-DNA AB Negative (Negative)
== END ==
LOC: M LAB 11:24
PROVIDERS: ATTEND Internal Medicine Rheumatology
DX: M32.9 Systemic lupus erythematosus, unspecified (principal); B37.0 Candidal stomatitis; Z79.899 Other long term (current) drug therapy

== ENCOUNTER → 2023-01-02 | Outpatient (CLI) | payer MEDICARE, BC ==
[2023-01-02 12:26] LABS: BASO % 0.5 % (0.0-1.0); EOS # 0.1 10^3/uL (0.0-0.5); EOS % 1.7 % (0.0-3.0); HEMATOCRIT 41.8 % (36.0-47.0); HEMOGLOBIN 13.6 g/dl (12.0-15.5); LYMPH # 2.4 10^3/uL (1.5-5.0); LYMPH % 38.1 % (24.0-44.0); MEAN CORPUSCULAR HEMOGLOBIN 29.2 pg (27.0-33.0); MEAN CORPUSCULAR HGB CONC 32.5 g/dl (32.0-36.5); MEAN CORPUSCULAR VOLUME 89.9 fl (80.0-96.0); MONO # 0.5 10^3/uL (0.0-0.8); MONO % 8.3 % (2.0-8.0); NEUTROPHILS # 3.3 10^3/uL (1.5-8.5); NEUTROPHILS % 51.1 % (36.0-66.0); PLATELET COUNT, AUTOMATED 245 10^3/uL (150-450); RED BLOOD COUNT 4.65 10^6/uL (4.00-5.40); WHITE BLOOD COUNT 6.4 10^3/uL (4.0-10.0)
[2023-01-02 12:46] LABS: BLOOD UREA NITROGEN 11 MG/DL (9-23); CARBON DIOXIDE LEVEL 29 MMOL/L (20-31); CHLORIDE LEVEL 102 MMOL/L (98-107); CREATININE FOR GFR 0.78 MG/DL (0.55-1.30); GLOMERULAR FILTRATION RATE > 60.0 (>51); GLUCOSE, FASTING 101 MG/DL (60-100); POTASSIUM SERUM 3.8 MMOL/L (3.5-5.1); SODIUM LEVEL 136 MMOL/L (136-145)
[2023-01-02 12:47] LABS: ALBUMIN 3.5 G/DL (3.2-5.2); ALKALINE PHOSPHATASE 80 U/L (46-116); ALT/SGPT 13 U/L (7.0-40); AST/SGOT < 8 U/L (<34); BILIRUBIN,TOTAL 0.3 MG/DL (0.3-1.2); CALCIUM LEVEL 8.7 MG/DL (8.5-10.1); TOTAL PROTEIN 6.3 G/DL (5.7-8.2)
[2023-01-02 13:02] LABS: HEMOGLOBIN A1c 5.1 % (4.0-6.0)
== END ==
LOC: M LAB 11:21
PROVIDERS: ATTEND Physician Assistant
DX: B37.0 Candidal stomatitis (principal); Z79.899 Other long term (current) drug therapy

== ENCOUNTER → 2023-01-16 | Outpatient (CLI) | payer MEDICARE, BC | LOC: M PLAIMG 09:38 | PROVIDERS: ATTEND Physician Assistant | DX: I69.922 Dysarthria following unspecified cerebrovascular disease (principal); I67.89 Other cerebrovascular disease ==

== ENCOUNTER → 2023-03-18 | Outpatient (CLI) | payer MEDICARE, BC ==
[2023-03-18 15:44] LABS: BASO # 0.1 10^3/uL (0.0-0.2); BASO % 0.6 % (0.0-1.0); EOS # 0.2 10^3/uL (0.0-0.5); EOS % 2.5 % (0.0-3.0); HEMATOCRIT 43.2 % (36.0-47.0); HEMOGLOBIN 14.2 g/dl (12.0-15.5); LYMPH # 3.3 10^3/uL (1.5-5.0); LYMPH % 33.7 % (24.0-44.0); MEAN CORPUSCULAR HEMOGLOBIN 30.4 pg (27.0-33.0); MEAN CORPUSCULAR HGB CONC 32.9 g/dl (32.0-36.5); MEAN CORPUSCULAR VOLUME 92.5 fl (80.0-96.0); MONO # 0.8 10^3/uL (0.0-0.8); MONO % 8.2 % (2.0-8.0); NEUTROPHILS # 5.3 10^3/uL (1.5-8.5); NEUTROPHILS % 54.4 % (36.0-66.0); PLATELET COUNT, AUTOMATED 325 10^3/uL (150-450); RED BLOOD COUNT 4.67 10^6/uL (4.00-5.40); WHITE BLOOD COUNT 9.7 10^3/uL (4.0-10.0)
[2023-03-18 15:54] LABS: ERYTHROCYTE SEDIMENTATION RATE 54 mm/hr (0-30)
[2023-03-18 16:15] LABS: ALBUMIN 3.4 G/DL (3.2-5.2); ALKALINE PHOSPHATASE 98 U/L (46-116); ALT/SGPT < 9 U/L (7.0-40); AST/SGOT 16 U/L (<34); BILIRUBIN,TOTAL 0.2 MG/DL (0.3-1.2); BLOOD UREA NITROGEN 13 MG/DL (9-23); CALCIUM LEVEL 8.3 MG/DL (8.5-10.1); CARBON DIOXIDE LEVEL 27 MMOL/L (20-31); CHLORIDE LEVEL 102 MMOL/L (98-107); CPK CREATINE PHOSPHOKINASE 179 U/L (34-145); CREATININE FOR GFR 0.96 MG/DL (0.55-1.30); GLOMERULAR FILTRATION RATE > 60.0 (>51); GLUCOSE, FASTING 89 MG/DL (60-100); MAGNESIUM LEVEL 1.7 MG/DL (1.8-2.4); POTASSIUM SERUM 4.6 MMOL/L (3.5-5.1); SODIUM LEVEL 134 MMOL/L (136-145); TOTAL PROTEIN 6.9 G/DL (5.7-8.2)
== END ==
LOC: M RAD 14:39
PROVIDERS: ATTEND Physician Assistant
DX: J20.9 Acute bronchitis, unspecified (principal); M79.10 Myalgia, unspecified site

== ENCOUNTER → 2023-09-04 | Outpatient (CLI) | payer MEDICARE, BC ==
[~2023-09-04] MED LIST changes: -GABA-283 PO; +GABA-284 PO
== END ==
LOC: M RAD 10:59
PROVIDERS: ATTEND Physician Assistant
DX: Z12.2 Encounter for screening for malignant neoplasm of respiratory organs (principal); F17.218 Nicotine dependence, cigarettes, with other nicotine-induced disorders; R91.8 Other nonspecific abnormal finding of lung field; R91.1 Solitary pulmonary nodule

== ENCOUNTER → 2023-09-25 | Outpatient (REF) | payer MEDICARE, BC ==
[~2023-09-25] MED LIST changes: +ASPI81CH33 PO; +CLOP75TA2; +OXYC10TA3; +TRAZ-252
== END ==
LOC: M LAB REF 11:40
PROVIDERS: ATTEND Physician Assistant
DX: J44.1 Chronic obstructive pulmonary disease with (acute) exacerbation (principal)

== ENCOUNTER → 2023-10-22 | Outpatient (REF) | payer MEDICARE, BC | LOC: M LAB REF 17:29 | PROVIDERS: ATTEND Physician Assistant | DX: J44.1 Chronic obstructive pulmonary disease with (acute) exacerbation (principal) ==

== ENCOUNTER → 2023-11-06 | Outpatient (CLI) | payer MEDICARE, BC | LOC: M PLAIMG 13:01 | PROVIDERS: ATTEND Physician Assistant | DX: R91.8 Other nonspecific abnormal finding of lung field (principal) ==

== ENCOUNTER → 2023-11-24 | Outpatient (REF) | payer MEDICARE, BC | LOC: M LAB REF 13:11 | PROVIDERS: ATTEND Internal Medicine Pulmonary Disease | DX: J44.9 Chronic obstructive pulmonary disease, unspecified (principal) ==

== ENCOUNTER → 2023-12-11 | Outpatient (REF) | payer MEDICARE, BC ==
[2023-12-11 18:38] LABS: BACTERIA, URINE AUTO NEGATIVE (NEGATIVE); MUCUS, URINE SMALL (NEGATIVE); RBC, URINE AUTO 11 /HPF (0-3); SQUAMOUS EPITHELIAL CELL UR AU 6 /HPF (0-6); WBC, URINE AUTO 1 /HPF (0-3)
== END ==
LOC: M LAB REF 16:55
PROVIDERS: ATTEND Nurse Practitioner Family
DX: R31.29 Other microscopic hematuria (principal)

== ENCOUNTER → 2024-02-17 | Outpatient (CLI) | payer MEDICARE, BC ==
[~2024-02-17] MED LIST changes: -POTA20EL PO; +POTA20LI16 PO
== END ==
LOC: M PLAIMG 13:17
PROVIDERS: ATTEND Internal Medicine Pulmonary Disease
DX: R91.8 Other nonspecific abnormal finding of lung field (principal); J98.11 Atelectasis

== ENCOUNTER → 2024-03-15 | Outpatient (REF) | payer MEDICARE, BC | LOC: M LAB REF 17:28 | PROVIDERS: ATTEND Nurse Practitioner Family | DX: N39.0 Urinary tract infection, site not specified (principal) ==

== ENCOUNTER → 2024-06-16 | Outpatient (REF) | payer MEDICARE, BC | LOC: M LAB REF 17:09 | PROVIDERS: ATTEND Nurse Practitioner Family | DX: N39.0 Urinary tract infection, site not specified (principal) ==

== ENCOUNTER → 2024-09-16 | Outpatient (REF) | payer MEDICARE, BC ==
[2024-09-20 19:10] LABS: FREE T4 0.87 NG/DL (0.89-1.76)
[2024-09-21 12:10] LABS: THYROID STIMULATING HORMONE 3.188 uIU/ML (0.55-4.78)
== END ==
LOC: M LAB REF 17:47
PROVIDERS: ATTEND Nurse Practitioner Family
DX: E03.9 Hypothyroidism, unspecified (principal)

== ENCOUNTER → 2024-10-28 | Outpatient (CLI) | payer MEDICARE, BC | LOC: M RAD 06:27 | PROVIDERS: ATTEND Physician Assistant | DX: G44.52 New daily persistent headache (NDPH) (principal); I65.23 Occlusion and stenosis of bilateral carotid arteries ==

== ENCOUNTER → 2024-11-18 | Outpatient (CLI) | payer MEDICARE, BC ==
[2024-11-18 09:33] LABS: ALBUMIN 3.3 G/DL (3.2-5.2); ALKALINE PHOSPHATASE 89 U/L (35-104); ALT/SGPT 16 U/L (7.0-40); AST/SGOT 13 U/L (<34); BILIRUBIN,TOTAL 0.3 MG/DL (0.3-1.2); BLOOD UREA NITROGEN 14 MG/DL (9-23); CALCIUM LEVEL 8.9 MG/DL (8.5-10.1); CARBON DIOXIDE LEVEL 29 MMOL/L (20-31); CHLORIDE LEVEL 108 MMOL/L (98-107); CREATININE FOR GFR 0.85 MG/DL (0.55-1.30); GLOMERULAR FILTRATION RATE > 60.0 (>51); GLUCOSE, FASTING 95 MG/DL (60-100); POTASSIUM SERUM 3.8 MMOL/L (3.5-5.1); SODIUM LEVEL 142 MMOL/L (136-145); TOTAL PROTEIN 6.6 G/DL (5.7-8.2)
[2024-11-18 09:44] LABS: FOLLICLE STIMULATING HORMONE 79.7 mIU/ML; FREE T4 0.88 NG/DL (0.89-1.76); LUTEINIZING HORMONE 60.8 mIU/ML; PROLACTIN 5.32 NG/ML; THYROID STIMULATING HORMONE 2.586 uIU/ML (0.55-4.78)
[2024-11-18 09:45] LABS: CORTISOL AM 15.2 UG/DL (4.3-22.4)
== END ==
LOC: M LAB 08:37
PROVIDERS: ATTEND Family Medicine
DX: E23.6 Other disorders of pituitary gland (principal)

== ENCOUNTER → 2024-11-28 | Outpatient (CLI) | payer MEDICARE, BC ==
[~2024-11-28] MED LIST changes: +READI-CAT 2 As Ordered ONE
[2024-11-28 13:42] LABS: BASO % 0.5 % (0.0-1.0); EOS # 0.2 10^3/uL (0.0-0.5); EOS % 2.7 % (0.0-3.0); HEMOGLOBIN 14.7 g/dl (12.0-15.5); LYMPH # 2.1 10^3/uL (1.5-5.0); MEAN CORPUSCULAR HGB CONC 33.4 g/dl (32.0-36.5); MEAN CORPUSCULAR VOLUME 89.8 fl (80.0-96.0); MONO # 0.7 10^3/uL (0.0-0.8); MONO % 8.2 % (2.0-8.0); NEUTROPHILS % 62.2 % (36.0-66.0); PLATELET COUNT, AUTOMATED 198 10^3/uL (150-450); WHITE BLOOD COUNT 8.1 10^3/uL (4.0-10.0)
[2024-11-28 14:01] LABS: LIPASE 27 U/L (12-53)
[2024-11-28 14:02] LABS: AMYLASE 76 U/L (30-118)
[2024-11-28 14:03] LABS: ALBUMIN 3.6 G/DL (3.2-5.2); ALKALINE PHOSPHATASE 102 U/L (35-104); ALT/SGPT 16 U/L (7.0-40); AST/SGOT 14 U/L (<34); BILIRUBIN,TOTAL 0.3 MG/DL (0.3-1.2); BLOOD UREA NITROGEN 8 MG/DL (9-23); CALCIUM LEVEL 9.1 MG/DL (8.5-10.1); CARBON DIOXIDE LEVEL 26 MMOL/L (20-31); CHLORIDE LEVEL 109 MMOL/L (98-107); CREATININE FOR GFR 0.77 MG/DL (0.55-1.30); GLOMERULAR FILTRATION RATE > 60.0 (>51); GLUCOSE, FASTING 89 MG/DL (60-100); POTASSIUM SERUM 4.1 MMOL/L (3.5-5.1); SODIUM LEVEL 140 MMOL/L (136-145); TOTAL PROTEIN 6.7 G/DL (5.7-8.2)
== END ==
LOC: M RAD 11:48
PROVIDERS: ATTEND Family Medicine
DX: R10.32 Left lower quadrant pain (principal); K59.00 Constipation, unspecified

== ENCOUNTER → 2024-12-14 | Outpatient (CLI) | payer MEDICARE, BC ==
[~2024-12-14] MED LIST changes: -READI-CAT 2 As Ordered ONE
== END ==
LOC: M RAD 12:44
PROVIDERS: ATTEND Nurse Practitioner Family
DX: D44.0 Neoplasm of uncertain behavior of thyroid gland (principal)

== ENCOUNTER → 2024-12-15 | Outpatient (REF) | payer MEDICARE, BC | LOC: M LAB REF 17:20 | PROVIDERS: ATTEND Nurse Practitioner Family | DX: N39.0 Urinary tract infection, site not specified (principal) ==

== ENCOUNTER → 2025-02-12 | Outpatient (CLI) | payer MEDICARE, BC ==
[2025-02-12 11:20] LABS: IMMUNOGLOBULIN A 121.5 MG/DL (40-350)
[2025-02-12 11:40] LABS: IMMUNOGLOBULIN M 435.9 MG/DL (50-300)
[2025-02-14 13:32] LABS: FREE KAPPA LIGHT CHAINS SERUM 34.2 mg/L (3.3-19.4); FREE LAMBDA LIGHT CHAINS SERUM 25.2 mg/L (5.7-26.3); KAPPA/LAMBDA RATIO SERUM 1.36 (0.26-1.65)
== END ==
LOC: M LAB 09:19
PROVIDERS: ATTEND Internal Medicine
DX: D68.61 Antiphospholipid syndrome (principal)

== ENCOUNTER → 2025-02-12 | Outpatient (CLI) | payer MEDICARE, BC ==
[2025-02-12 12:12] LABS: INR 1.08; PROTHROMBIN TIME 14.3 SECONDS (12.5-14.5)
== END ==
LOC: M LAB 09:11
PROVIDERS: ATTEND Family Medicine
DX: D68.61 Antiphospholipid syndrome (principal)

== ENCOUNTER → 2025-02-13 | Outpatient (CLI) | payer MEDICARE, BC | LOC: EEVIPCON 14:06 → M LAB 14:06 | PROVIDERS: ATTEND Family Medicine | DX: J44.1 Chronic obstructive pulmonary disease with (acute) exacerbation (principal) ==

== ENCOUNTER → 2025-03-08 | Outpatient (REF) | payer MEDICARE, BC | LOC: M LAB REF 16:47 | PROVIDERS: ATTEND Family Medicine | DX: J44.1 Chronic obstructive pulmonary disease with (acute) exacerbation (principal) ==

== ENCOUNTER → 2025-03-13 | Outpatient (CLI) | payer MEDICARE, BC | LOC: M PLAIMG 15:30 | PROVIDERS: ATTEND Family Medicine | DX: R20.0 Anesthesia of skin (principal) ==

== ENCOUNTER → 2025-03-15 | Outpatient (CLI) | payer MEDICARE, BC ==
[~2025-03-15] MED LIST changes: +ALBU8.5H INH; +ATOR40TA75 PO; +BUPR150T12 PO; +CEFU50TA PO; +DULO1CAP6 PO; +ESTR0.5T3 PO; +FLUT1BLS8 INH; +GABA-1172 PO; +HYDR200T46 PO; +MECL-209 PO; +NALO25TA PO; +WARF-23 PO
[2025-03-15 13:00] LABS: BASO % 0.4 % (0.0-1.0); EOS # 0.2 10^3/uL (0.0-0.5); EOS % 1.8 % (0.0-3.0); HEMATOCRIT 41.8 % (36.0-47.0); HEMOGLOBIN 13.8 g/dl (12.0-15.5); LYMPH # 2.6 10^3/uL (1.5-5.0); LYMPH % 24.2 % (24.0-44.0); MEAN CORPUSCULAR HEMOGLOBIN 29.6 pg (27.0-33.0); MEAN CORPUSCULAR VOLUME 89.5 fl (80.0-96.0); MONO # 0.8 10^3/uL (0.0-0.8); MONO % 7.4 % (2.0-8.0); NEUTROPHILS # 7.2 10^3/uL (1.5-8.5); NEUTROPHILS % 65.9 % (36.0-66.0); PLATELET COUNT, AUTOMATED 185 10^3/uL (150-450); RED BLOOD COUNT 4.67 10^6/uL (4.00-5.40); WHITE BLOOD COUNT 10.9 10^3/uL (4.0-10.0)
[2025-03-15 13:21] LABS: PERCENT SATURATION 13.2 % (13.2-45.0)
[2025-03-15 13:23] LABS: FERRITIN 36.7 NG/ML (7.3-270.7); THYROID STIMULATING HORMONE 3.292 uIU/ML (0.55-4.78); TOTAL 25(OH) VITAMIN D 64.6 NG/ML (20.0-100.0)
[2025-03-15 13:24] LABS: FREE T4 0.97 NG/DL (0.89-1.76)
[2025-03-15 15:30] LABS: INR 1.01; PROTHROMBIN TIME 13.6 SECONDS (12.5-14.5)
== END ==
LOC: M LAB 12:08
PROVIDERS: ATTEND Family Medicine
DX: J44.1 Chronic obstructive pulmonary disease with (acute) exacerbation (principal); R53.83 Other fatigue; D68.61 Antiphospholipid syndrome; Z79.899 Other long term (current) drug therapy; D64.9 Anemia, unspecified

== ENCOUNTER 2025-03-22 11:04 | Emergency (ER) | payer MEDICARE, BC ==
[~2025-03-22] VITALS: Ht 162.6 cm; Wt 65.0 kg
[~2025-03-22 11:04] MED LIST changes: -CEFU50TA PO; -MECL-209 PO
[2025-03-22 11:52] LABS: BASO % 0.4 % (0.0-1.0); EOS # 0.2 10^3/uL (0.0-0.5); EOS % 2.7 % (0.0-3.0); HEMATOCRIT 43.6 % (36.0-47.0); HEMOGLOBIN 14.1 g/dl (12.0-15.5); LYMPH # 2.3 10^3/uL (1.5-5.0); LYMPH % 28.6 % (24.0-44.0); MEAN CORPUSCULAR HEMOGLOBIN 28.9 pg (27.0-33.0); MEAN CORPUSCULAR HGB CONC 32.3 g/dl (32.0-36.5); MEAN CORPUSCULAR VOLUME 89.3 fl (80.0-96.0); MONO # 0.7 10^3/uL (0.0-0.8); MONO % 8.3 % (2.0-8.0); NEUTROPHILS # 4.8 10^3/uL (1.5-8.5); NEUTROPHILS % 59.5 % (36.0-66.0); PLATELET COUNT, AUTOMATED 195 10^3/uL (150-450); RED BLOOD COUNT 4.88 10^6/uL (4.00-5.40)
[2025-03-22 12:03] LABS: INR 2.71; PROTHROMBIN TIME 28.8 SECONDS (12.5-14.5)
[2025-03-22 12:22] LABS: ALBUMIN 3.7 G/DL (3.2-5.2); ALKALINE PHOSPHATASE 95 U/L (35-104); ALT/SGPT 23 U/L (7.0-40); AST/SGOT 21 U/L (<34); BILIRUBIN,TOTAL 0.3 MG/DL (0.3-1.2); BLOOD UREA NITROGEN 11 MG/DL (9-23); CALCIUM LEVEL 8.7 MG/DL (8.5-10.1); CARBON DIOXIDE LEVEL 29 MMOL/L (20-31); CHLORIDE LEVEL 110 MMOL/L (98-107); CREATININE FOR GFR 0.85 MG/DL (0.55-1.30); GLOMERULAR FILTRATION RATE 78.9 (>51); GLUCOSE, FASTING 94 MG/DL (60-100); POTASSIUM SERUM 4.1 MMOL/L (3.5-5.1); SODIUM LEVEL 142 MMOL/L (136-145); TOTAL PROTEIN 6.9 G/DL (5.7-8.2)
[2025-03-22 12:41] LABS: CK-MB VALUE MASS 1.5 NG/ML (<3.6)
[2025-03-22 12:45] LABS: FREE T4 0.92 NG/DL (0.89-1.76); THYROID STIMULATING HORMONE 2.808 uIU/ML (0.55-4.78)
[2025-03-22 12:53] LABS: CPK CREATINE PHOSPHOKINASE 170 U/L (34-145); MB/CK RELATIVE INDEX 0.88 (< OR =4)
[2025-03-22 12:54] LABS: KETONE, URINE AUTO RFX NEGATIVE (NEGATIVE); LEUKOCYTE ESTERASE UR AUTO RFX NEGATIVE (NEGATIVE); NITRITE, URINE AUTO RFX NEGATIVE (NEGATIVE); RBC, URINE AUTO RFX 3 /HPF (0-3); SQUAM EPITHELIAL CELL UR AURFX 1 /HPF (0-6); WBC, URINE AUTO RFX 1 /HPF (0-3)
[2025-03-22] MEDS: MECLIZINE 25 MG TABLET PO ONE (13:11)
[2025-03-22 13:39] LABS: CK-MB VALUE MASS 1.7 NG/ML (<3.6)
[2025-03-22 13:42] LABS: MB/CK RELATIVE INDEX 1.04 (< OR =4)
[2025-03-22] MEDS ORDERED: MECL-209 PO (13:59)
[2025-03-22] MEDS ORDERED: CEFU50TA PO (14:00)
[2025-03-22 14:10] VITALS: BP 122/62; TEMP 99.3; O2SAT 95
== END 2025-03-22 14:13 | disposition home or self-care (01) ==
LOC: M ED 11:04
DX: R53.1 Weakness (principal); H81.4 Vertigo of central origin; R00.1 Bradycardia, unspecified; I44.4 Left anterior fascicular block; J45.909 Unspecified asthma, uncomplicated; J44.9 Chronic obstructive pulmonary disease, unspecified; E55.9 Vitamin D deficiency, unspecified; F32.A Depression, unspecified; M79.7 Fibromyalgia; F17.200 Nicotine dependence, unspecified, uncomplicated; Z88.2 Allergy status to sulfonamides; Z88.5 Allergy status to narcotic agent; Z91.041 Radiographic dye allergy status; Z91.040 Latex allergy status; Z79.52 Long term (current) use of systemic steroids; Z79.82 Long term (current) use of aspirin; Z79.02 Long term (current) use of antithrombotics/antiplatelets; Z79.899 Other long term (current) drug therapy; Z79.01 Long term (current) use of anticoagulants

== ENCOUNTER 2025-03-24 11:59 | Outpatient (CLI) | payer MEDICARE, BC ==
[~2025-03-24] VITALS: Ht 121.9 cm; Wt 75.0 kg
[~2025-03-24 11:59] MED LIST changes: +ALBUTEROL SULFATE 2.5MG/0.5ML INH CONCENTRATE NEB SOLN INH PRN; +CEFU50TA PO; +EPINEPHrine INJ 1 MG/ML 1ML AMP IM PRN; +MECL-209 PO; +diphenhydrAMINE 50MG/ML VIAL IV PRN; +methylPREDNISolone 125MG 2ML VIAL IV PRN
[2025-03-24 12:10] VITALS: BP 119/70; O2SAT 99
[2025-03-24] MEDS: FERRIC CARBOXYMALTOSE 750 MG (VIAL MATE) IN 100ML NS IV ONE (12:30)
[2025-03-24 13:12] VITALS: BP 125/61; O2SAT 99
== END 2025-03-24 13:15 ==
LOC: M INFU 11:59
PROVIDERS: ATTEND Family Medicine
DX: D64.9 Anemia, unspecified (principal); Z88.2 Allergy status to sulfonamides; Z88.5 Allergy status to narcotic agent; Z91.041 Radiographic dye allergy status; Z91.040 Latex allergy status
CPT/HCPCS: 96365; J1439

== ENCOUNTER → 2025-04-04 | Outpatient (CLI) | payer MEDICARE, BC ==
[~2025-04-04] MED LIST changes: -ALBUTEROL SULFATE 2.5MG/0.5ML INH CONCENTRATE NEB SOLN INH PRN; -EPINEPHrine INJ 1 MG/ML 1ML AMP IM PRN; -diphenhydrAMINE 50MG/ML VIAL IV PRN; -methylPREDNISolone 125MG 2ML VIAL IV PRN
[2025-04-04 13:49] LABS: INR 2.36; PROTHROMBIN TIME 25.9 SECONDS (12.5-14.5)
== END ==
LOC: M LAB 12:51
PROVIDERS: ATTEND Family Medicine
DX: D68.61 Antiphospholipid syndrome (principal)

== ENCOUNTER → 2025-04-04 | Outpatient (CLI) | payer MEDICARE, BC | LOC: M RAD 12:48 | PROVIDERS: ATTEND Internal Medicine Pulmonary Disease | DX: Z12.2 Encounter for screening for malignant neoplasm of respiratory organs (principal); F17.218 Nicotine dependence, cigarettes, with other nicotine-induced disorders; Z79.01 Long term (current) use of anticoagulants; D68.61 Antiphospholipid syndrome ==

== ENCOUNTER 2025-04-07 11:54 | Outpatient (CLI) | payer MEDICARE, BC ==
[~2025-04-07] VITALS: Ht 162.6 cm; Wt 71.4 kg
[~2025-04-07 11:54] MED LIST changes: +ALBUTEROL SULFATE 2.5MG/0.5ML INH CONCENTRATE NEB SOLN INH PRN; +EPINEPHrine INJ 1 MG/ML 1ML AMP IM PRN; +diphenhydrAMINE 50MG/ML VIAL IV PRN; +methylPREDNISolone 125MG 2ML VIAL IV PRN
[2025-04-07 12:15] VITALS: BP 129/59; O2SAT 94
[2025-04-07] MEDS: FERRIC CARBOXYMALTOSE 750 MG (VIAL MATE) IN 100ML NS IV ONE (12:21)
[2025-04-07 12:45] VITALS: BP 129/63; O2SAT 96
== END 2025-04-07 12:45 | disposition home or self-care (01) ==
LOC: M INFU 11:54
PROVIDERS: ATTEND Family Medicine
DX: D50.9 Iron deficiency anemia, unspecified (principal); Z88.1 Allergy status to other antibiotic agents; Z88.2 Allergy status to sulfonamides; Z88.5 Allergy status to narcotic agent; Z91.040 Latex allergy status; Z91.041 Radiographic dye allergy status
CPT/HCPCS: 96365; J1439

== ENCOUNTER → 2025-06-19 | Outpatient (REF) | payer MEDICARE, BC ==
[~2025-06-19] MED LIST changes: -ALBUTEROL SULFATE 2.5MG/0.5ML INH CONCENTRATE NEB SOLN INH PRN; -EPINEPHrine INJ 1 MG/ML 1ML AMP IM PRN; -diphenhydrAMINE 50MG/ML VIAL IV PRN; -methylPREDNISolone 125MG 2ML VIAL IV PRN
== END ==
LOC: M LAB REF 17:09
PROVIDERS: ATTEND Family Medicine
DX: R82.90 Unspecified abnormal findings in urine (principal)